=== PATIENT | female | born 1945 | race Caucasian/White ===

== ENCOUNTER 2022-02-11 08:49 | Emergency (ER) | payer OTHER ==
[~2022-02-11] VITALS: Ht 162.6 cm; Wt 55.6 kg
[2022-02-11 15:05] VITALS: BP 127/87
== END 2022-02-11 15:08 | disposition home or self-care (01) ==
LOC: ER 08:49
DX: M19.042 Primary osteoarthritis, left hand (principal)
CPT/HCPCS: 73110; 73130

== ENCOUNTER 2022-02-26 07:04 | Emergency (ER) | payer OTHER ==
[~2022-02-26] VITALS: Ht 152.4 cm; Wt 56.0 kg
[2022-02-26 08:44] VITALS: BP 136/79
[2022-02-26] MEDS ORDERED: ACETAMINOPHEN 500 MG TAB PO ONE (09:30)
[2022-02-26] MEDS ORDERED: AMOX-277 PO ×2 (12:08→12:38)
== END 2022-02-26 12:40 | disposition home or self-care (01) ==
LOC: ER 07:04
DX: S63.502A Unspecified sprain of left wrist, initial encounter (principal); L03.114 Cellulitis of left upper limb; I10 Essential (primary) hypertension; Z88.1 Allergy status to other antibiotic agents; X58.XXXA Exposure to other specified factors, initial encounter; Y93.89 Activity, other specified; Y92.89 Other specified places as the place of occurrence of the external cause; Y99.8 Other external cause status
CPT/HCPCS: 73110; 73130; 93971